=== PATIENT | female | born 1995 | race Caucasian/White ===

== ENCOUNTER 2023-11-02 16:47 | Emergency (ER) | payer OTHER, SELFPAY ==
[2023-11-02 16:51] VITALS: BP 115/79
[2023-11-02 18:00] VITALS: BP 124/74
--- NOTE | 2023-11-02 18:57 | ED.GENMED ---
History of Present Illness
General
Chief Complaint: Abdominal Symptoms
Source: patient
Time Seen by Provider: 11/02/23 18:41
History of Present Illness
History of Present Illness:
This patient is a 28-year-old female who states that 1 month ago she developed discomfort in the right lower pelvic area. She was seen at an urgent care and referred for an outpatient ultrasound, transvaginal and transabdominal that was
'unremarkable'. The pain eventually went away and she no longer has any pain. However, since that time she describes 'GI issues, described as stools that are now looser and thinner than usual. She states that she is becoming anxious with this,
and describes associated intermittent dyspnea, nausea, anorexia, and hot flashes which she strongly suspects is related to anxiety. She again denies abdominal pain. Today, she started menstruating. With her bowel movement she saw some blood and
mucus which made her wonder whether or not it was part of the stool. She then weighed herself and noted a slight weight loss, which 'pushed me over the edge' with concern that she may have colon cancer which prompted her visit here.
Past History
Past History
ED Past Medical History: None
ED Past Surgical History: None
Social History
Tobacco: Non-smoker
Alcohol: Occasional
Drug: None
Personal: Single
Phy Exam
Physical Exam
Physical Exam:
GENERAL: Alert , in no apparent distress
EYE: pupils equal and reactive
NECK: Supple, no significant adenopathy.
ENT: o/p clr, mmm.
CARDIAC: Regular rate and rhythm .
LUNGS: Clear breath sounds bilaterally, no acute respiratory distress, no wheezes/rales/rhonchi
ABDOMEN: Soft, without focal tenderness, no r/g, no cvat
NEUROLOGICAL: Alert and oriented, no focal neuro deficits
SKIN: Warm and dry, skin intact.
MUSCULOSKELETAL: No edema, well perfused.
PSYCH: Normal and appropriate interaction.
Course
Orders/Labs/Results
Orders:
Orders
11/02/23 18:57
Test Result ONCE
11/02/23 19:26
Complete Blood Count/With Diff Urgent
11/02/23 20:05
Comprehensive Metabolic Panel Urgent
HCG, Serum Qualitative Screen Urgent
Abnormal Lab Results
11/02/23 11/02/23
19:26 20:05
RBC 4.01 L 10^6/uL
(4.20-5.40)
Hct 35.6 L %
(37.0-47.0)
MCH 32.2 H pg
(27.0-31.0)
Lymphocytes % 17.9 L %
(20.5-51.1)
Potassium 3.4 L mmol/L
(3.5-5.1)
Creatinine 0.5 L mg/dL
(0.6-1.0)
Glucose 126 H mg/dl
(70-99)
11/02/23 19:26
11/02/23 20:05
Vital Signs
Initial and Last Documented VS:
Initial Vital Signs
Temp Pulse Resp BP Pulse Ox
99.3 F 83 16 115/79 99
11/02/23 16:51 11/02/23 16:51 11/02/23 16:51 11/02/23 16:51 11/02/23 16:51
Last Documented Vital Signs
Temp Pulse Resp BP Pulse Ox
99.3 F 83 16 115/79 99
11/02/23 16:51 11/02/23 16:51 11/02/23 16:51 11/02/23 16:51 11/02/23 16:51
*Critical Care Note
Total Time (30-74mins, 75-104mins- exclusive of procedures): Not Applicable
Update Note
Update Note:
Patient presents to the Emergency Department with __change in quality of stools
Number and Complexity of Problems Addressed at the Encounter
� Chronic conditions affecting care:
� Acute Exacerbation and/or Progression of Chronic Illness:
� Differential Diagnosis includes: But not limited to IBS, dietary related stool changes, colon mass, etc.
Amount and/or Complexity of Data to be Reviewed and Analyzed
� I performed an independent evaluation of and my interpretation is:
EKG:
CT:
Xrays:
Laboratory Studies:GENERALLY UNREMKARKABLE
Other:
� Review of other/old records reveals:
� Clinical information was obtained by an independent historian:
� Prescriptions/Medications Considered but not given:
� Further testing considered but not performed:
Risk of Complications and/or Morbidity or Mortality of Patient Management
� Social determinants of health affecting care:
� Discussion with other providers (PCP, Hospitalists, Consultants, etc):
� Escalation of care including admission/observation vs risk of discharge considered: With RN present, rectal exam was performed, boyfriend left room during this exam. No external abnormalities noted, no hemorrhoids. Nontender
exam, brown stool that is heme negative
W/u unremkarable here, will refer for outpt GI f/u.
ED Attending Note
-
Portions of this chart may have been created with voice recognition software.� Occasional wrong word or��sound alike� substitutions may have occurred due to the inherent limitations of voice recognition software.
Discharge Plan
Departure
Patient Disposition: Home (Routine Discharge)
Date of Disposition: 11/02/23
Time of Disposition: 20:32
Patient with high blood pressure during this ER visit?: No
Condition: Good
Discharge Problem:
Change in stool
Instructions: General
Referrals:
Xochitl Richard DO [Family Provider] -
Zoe Gandara DO [Active] - Next open appointment
Activity Restrictions/Additional Instructions:
IF YOU DEVELOP BLEEDING, BLACK STOOL, DIZZINESS, ABDOMINAL PAIN, FEVER. VOMITING, OR OTHER WORRISOME SIGNS, GO TO THE ER IMMEDIATELY!
Interventions
Interventions:
HV-[facility]fs[facility]-Tugsifqu[facility] Assessment Last Done: 11/02/23 19:09
Discharge Date and Time
Print Language: IVORIAN
[2023-11-02 19:34] LABS: % Basophils 0.5 % (0-2); % Eosinophils 0.1 % (0-6); % Immature Granulocytes 0.2 % (0-0.5); % Lymphocytes 17.9 % (20.5-51.1); % Neutrophils 74.3 % (42.2-75.2); Absolute Lymphocytes 1.5 10^3/uL (1.2-3.4); Absolute Monocytes 0.6 10^3/uL (0.1-0.6); Absolute Neutrophils 6.2 10^3/uL (1.4-6.5); Hematocrit 35.6 % (37.0-47.0); Hemoglobin 12.9 g/dL (12.0-16.0); Mean Corp Hgb Conc. 36.2 g/dL (33.0-37.0); Mean Corpuscular Hgb 32.2 pg (27.0-31.0); Mean Corpuscular Volume 88.8 fL (81.0-99.0); Mean Platelet Volume 10.1 fL (7.4-10.4); Nucleated Red Blood Cells % 0 %; Platelet Count 198 10^3/uL (130-400); Red Blood Cell Count 4.01 10^6/uL (4.20-5.40); Red Cell Dist. Width 11.8 % (11.5-14.5); White Blood Cell Count 8.3 10^3/uL (4.8-10.8)
[2023-11-02 20:00] VITALS: BP 120/78
[2023-11-02 20:28] LABS: ALT (SGPT) 13 U/L (0-35); AST (SGOT) 20 U/L (14-36); Albumin 4.4 g/dl (3.5-5.0); Alkaline Phosphatase 48 U/L (38-126); Blood Urea Nitrogen 10 mg/dl (7-17); Carbon Dioxide 25 mmol/L (22-30); Chloride 105 mmol/L (98-107); Glucose 126 mg/dl (70-99); Potassium 3.4 mmol/L (3.5-5.1); Sodium 137 mmol/L (135-145); Total Bilirubin 0.4 mg/dl (0.2-1.3); Total Protein 6.8 g/dl (6.3-8.2); eGFR > 60.00
[2023-11-02 20:30] LABS: HCG, Serum Qualitative Screen Negative
== END 2023-11-02 21:21 | disposition home or self-care (01) ==
LOC: EMR 16:47
PROVIDERS: EMERGENCY PHYSICIAN Emergency Medicine; FAMILY PHYSICIAN Family Medicine
DX: R19.4 Change in bowel habit (principal); R23.2 Flushing; R63.0 Anorexia; R11.0 Nausea; R06.00 Dyspnea, unspecified; Z91.048 Other nonmedicinal substance allergy status
CPT/HCPCS: 99283; 80053; 84703; 85025